=== PATIENT | female | born 1940 | race Two or more races ===

== ENCOUNTER 2020-01-25 06:47 | Outpatient (CLI) | payer OTHER | END 2020-01-25 06:57 | disposition home or self-care (01) | LOC: LAB 06:47 | PROVIDERS: ATTEND Internal Medicine Hematology & Oncology | DX: D50.8 Other iron deficiency anemias (principal); I10 Essential (primary) hypertension; D47.2 Monoclonal gammopathy; C90.00 Multiple myeloma not having achieved remission; E11.9 Type 2 diabetes mellitus without complications; E78.2 Mixed hyperlipidemia; H40.89 Other specified glaucoma ==

== ENCOUNTER 2020-01-25 08:03 | Outpatient (CLI) | payer OTHER | END 2020-01-25 08:07 | disposition home or self-care (01) | LOC: RAD 08:03 | PROVIDERS: ATTEND Internal Medicine Hematology & Oncology | DX: M85.88 Other specified disorders of bone density and structure, other site (principal); Z85.79 Personal history of other malignant neoplasms of lymphoid, hematopoietic and related tissues; I10 Essential (primary) hypertension; E11.9 Type 2 diabetes mellitus without complications; E78.2 Mixed hyperlipidemia; H40.89 Other specified glaucoma ==

== ENCOUNTER 2020-03-06 06:45 | Outpatient (CLI) | payer OTHER | END 2020-03-06 06:51 | disposition home or self-care (01) | LOC: LAB 06:45 | PROVIDERS: ATTEND Internal Medicine Hematology & Oncology | DX: D50.8 Other iron deficiency anemias (principal); R79.89 Other specified abnormal findings of blood chemistry; I10 Essential (primary) hypertension; R74.02 Elevation of levels of lactic acid dehydrogenase [LDH]; K76.89 Other specified diseases of liver; D63.1 Anemia in chronic kidney disease; C90.00 Multiple myeloma not having achieved remission; E11.9 Type 2 diabetes mellitus without complications; E78.2 Mixed hyperlipidemia; H40.89 Other specified glaucoma ==

== ENCOUNTER 2020-03-07 09:26 | Outpatient (CLI) | payer OTHER | END 2020-03-07 09:37 | disposition home or self-care (01) | LOC: NUCLEAR 09:26 | PROVIDERS: ATTEND Internal Medicine | DX: I11.9 Hypertensive heart disease without heart failure (principal); Z86.73 Personal history of transient ischemic attack (TIA), and cerebral infarction without residual deficits; I67.89 Other cerebrovascular disease ==

== ENCOUNTER 2020-03-14 07:34 | Outpatient (CLI) | payer OTHER | END 2020-03-14 07:41 | disposition home or self-care (01) | LOC: LAB 07:34 | PROVIDERS: ATTEND Internal Medicine Hematology & Oncology | DX: D50.8 Other iron deficiency anemias (principal); R79.89 Other specified abnormal findings of blood chemistry; I10 Essential (primary) hypertension; R74.02 Elevation of levels of lactic acid dehydrogenase [LDH]; K76.89 Other specified diseases of liver; D63.1 Anemia in chronic kidney disease; C90.00 Multiple myeloma not having achieved remission; E11.9 Type 2 diabetes mellitus without complications; E78.2 Mixed hyperlipidemia; H40.89 Other specified glaucoma ==

== ENCOUNTER 2020-04-14 07:46 | Outpatient (CLI) | payer OTHER | END 2020-04-14 07:54 | disposition home or self-care (01) | LOC: LAB 07:46 | PROVIDERS: ATTEND Internal Medicine Hematology & Oncology | DX: D50.8 Other iron deficiency anemias (principal); I10 Essential (primary) hypertension; R74.02 Elevation of levels of lactic acid dehydrogenase [LDH]; K76.89 Other specified diseases of liver; D47.2 Monoclonal gammopathy; C90.00 Multiple myeloma not having achieved remission; E11.9 Type 2 diabetes mellitus without complications; E78.2 Mixed hyperlipidemia; H40.89 Other specified glaucoma ==

== ENCOUNTER 2020-04-18 12:58 | Outpatient (CLI) | payer OTHER | END 2020-04-18 14:47 | disposition home or self-care (01) | LOC: NUCLEAR 12:58 | PROVIDERS: ATTEND Internal Medicine Hematology & Oncology | DX: M81.0 Age-related osteoporosis without current pathological fracture (principal); C90.00 Multiple myeloma not having achieved remission; I10 Essential (primary) hypertension; E11.9 Type 2 diabetes mellitus without complications; E78.2 Mixed hyperlipidemia; H40.89 Other specified glaucoma ==

== ENCOUNTER 2020-06-16 15:26 | Emergency (ER) | payer OTHER ==
[~2020-06-16] VITALS: Ht 157.5 cm; Wt 74.8 kg
[2020-06-16] MEDS ORDERED: ATORVASTATIN CA10 MG (15:37)
[2020-06-16] MEDS ORDERED: BUMETANIDE0.5 MG (15:37)
[2020-06-16] MEDS ORDERED: COZAAR25 MG (15:37)
[2020-06-16] MEDS ORDERED: JANUMET 50-1,01 EACH (15:41)
[2020-06-16] MEDS ORDERED: COREG CR10 MG (15:41)
[2020-06-17] MEDS ORDERED: ELIQUIS5 MG PO (11:22)
== END 2020-06-17 12:24 | disposition home or self-care (01) ==
LOC: ER 15:26 → CPU-OBS 15:44 → ER 15:44
DX: R00.2 Palpitations (principal); R07.89 Other chest pain; I51.7 Cardiomegaly; I27.29 Other secondary pulmonary hypertension

== ENCOUNTER 2020-06-24 07:41 | Outpatient (CLI) | payer OTHER ==
[~2020-06-24 07:41] MED LIST: ATORVASTATIN CA10 MG; BUMETANIDE0.5 MG; COREG CR10 MG; COZAAR25 MG; ELIQUIS5 MG PO; JANUMET 50-1,01 EACH
== END 2020-06-24 07:45 | disposition home or self-care (01) ==
LOC: LAB 07:41
PROVIDERS: ATTEND Internal Medicine Hematology & Oncology
DX: D50.8 Other iron deficiency anemias (principal); I10 Essential (primary) hypertension; R74.02 Elevation of levels of lactic acid dehydrogenase [LDH]; K76.89 Other specified diseases of liver; C90.00 Multiple myeloma not having achieved remission; E11.9 Type 2 diabetes mellitus without complications; E78.2 Mixed hyperlipidemia; H40.89 Other specified glaucoma

== ENCOUNTER 2020-08-19 09:27 | Emergency (ER) | payer OTHER ==
[~2020-08-19] VITALS: Ht 154.9 cm; Wt 78.9 kg
== END 2020-08-19 14:45 | disposition home or self-care (01) ==
LOC: ER 09:27
DX: D64.89 Other specified anemias (principal); N39.0 Urinary tract infection, site not specified; R42 Dizziness and giddiness; R53.81 Other malaise

== ENCOUNTER 2020-09-04 09:45 | Outpatient (CLI) | payer OTHER | END 2020-09-04 09:49 | disposition home or self-care (01) | LOC: LAB 09:45 | PROVIDERS: ATTEND Internal Medicine Hematology & Oncology | DX: D50.8 Other iron deficiency anemias (principal); I10 Essential (primary) hypertension; R74.02 Elevation of levels of lactic acid dehydrogenase [LDH]; K76.89 Other specified diseases of liver; D51.8 Other vitamin B12 deficiency anemias; D63.1 Anemia in chronic kidney disease; D47.2 Monoclonal gammopathy; C90.00 Multiple myeloma not having achieved remission; E11.9 Type 2 diabetes mellitus without complications; E78.2 Mixed hyperlipidemia; H40.9 Unspecified glaucoma ==

== ENCOUNTER → 2020-11-09 09:33 | Outpatient (CLI) | payer OTHER | END | disposition home or self-care (01) | LOC: LAB 09:33 | PROVIDERS: ATTEND Internal Medicine Hematology & Oncology | DX: D50.8 Other iron deficiency anemias (principal); I10 Essential (primary) hypertension; R74.02 Elevation of levels of lactic acid dehydrogenase [LDH]; K76.89 Other specified diseases of liver; C90.00 Multiple myeloma not having achieved remission; E11.9 Type 2 diabetes mellitus without complications; E78.2 Mixed hyperlipidemia; H40.89 Other specified glaucoma ==

== ENCOUNTER 2021-01-30 08:07 | Outpatient (CLI) | payer OTHER | END 2021-01-30 15:00 | disposition home or self-care (01) | LOC: LAB 08:07 | PROVIDERS: ATTEND Internal Medicine Hematology & Oncology | DX: D50.8 Other iron deficiency anemias (principal); I10 Essential (primary) hypertension; R74.02 Elevation of levels of lactic acid dehydrogenase [LDH]; K76.89 Other specified diseases of liver; D47.2 Monoclonal gammopathy; C90.00 Multiple myeloma not having achieved remission; E11.9 Type 2 diabetes mellitus without complications; E78.2 Mixed hyperlipidemia; H40.89 Other specified glaucoma ==

== ENCOUNTER 2021-04-18 08:26 | Outpatient (CLI) | payer OTHER | END 2021-04-18 15:00 | disposition home or self-care (01) | LOC: LAB 08:26 | PROVIDERS: ATTEND Internal Medicine Hematology & Oncology | DX: D50.8 Other iron deficiency anemias (principal); I10 Essential (primary) hypertension; R74.02 Elevation of levels of lactic acid dehydrogenase [LDH]; K76.89 Other specified diseases of liver; E55.9 Vitamin D deficiency, unspecified; E78.2 Mixed hyperlipidemia; E03.8 Other specified hypothyroidism; R97.0 Elevated carcinoembryonic antigen [CEA]; R97.8 Other abnormal tumor markers; C90.00 Multiple myeloma not having achieved remission; E11.9 Type 2 diabetes mellitus without complications; H40.89 Other specified glaucoma; D51.8 Other vitamin B12 deficiency anemias; D47.2 Monoclonal gammopathy ==

== ENCOUNTER 2021-06-21 10:33 | Outpatient (CLI) | payer OTHER | END 2021-06-21 10:41 | disposition home or self-care (01) | LOC: LAB 10:33 | PROVIDERS: ATTEND Internal Medicine Hematology & Oncology | DX: D50.8 Other iron deficiency anemias (principal); I10 Essential (primary) hypertension; R74.02 Elevation of levels of lactic acid dehydrogenase [LDH]; K76.89 Other specified diseases of liver; D47.2 Monoclonal gammopathy; C90.00 Multiple myeloma not having achieved remission; C56.9 Malignant neoplasm of unspecified ovary; R97.8 Other abnormal tumor markers; R97.1 Elevated cancer antigen 125 [CA 125]; E11.9 Type 2 diabetes mellitus without complications; E78.2 Mixed hyperlipidemia; H40.9 Unspecified glaucoma ==

== ENCOUNTER 2021-07-08 10:28 | Emergency (ER) | payer OTHER ==
[~2021-07-08] VITALS: Ht 154.9 cm; Wt 68.0 kg
[2021-07-08] MEDS ORDERED: REVLIMID10 MG (10:40)
== END 2021-07-08 12:08 | disposition home or self-care (01) ==
LOC: ER 10:28
DX: M79.662 Pain in left lower leg (principal); I89.0 Lymphedema, not elsewhere classified; I10 Essential (primary) hypertension; E11.9 Type 2 diabetes mellitus without complications; Z79.84 Long term (current) use of oral hypoglycemic drugs

== ENCOUNTER 2021-07-09 10:40 | Emergency (ER) | payer OTHER ==
[~2021-07-09] VITALS: Ht 154.9 cm; Wt 68.0 kg
[~2021-07-09 10:40] MED LIST changes: +REVLIMID10 MG
== END 2021-07-09 15:51 | disposition home or self-care (01) ==
LOC: ER 10:40
DX: R60.0 Localized edema (principal); M79.605 Pain in left leg; E11.9 Type 2 diabetes mellitus without complications; Z79.84 Long term (current) use of oral hypoglycemic drugs; I10 Essential (primary) hypertension

== ENCOUNTER 2021-08-10 08:56 | Outpatient (CLI) | payer OTHER | END 2021-08-10 09:00 | disposition home or self-care (01) | LOC: LAB 08:56 | PROVIDERS: ATTEND Internal Medicine Hematology & Oncology | DX: D50.8 Other iron deficiency anemias (principal); I10 Essential (primary) hypertension; R74.02 Elevation of levels of lactic acid dehydrogenase [LDH]; K76.89 Other specified diseases of liver; C90.00 Multiple myeloma not having achieved remission; E11.9 Type 2 diabetes mellitus without complications; E78.2 Mixed hyperlipidemia; H40.9 Unspecified glaucoma ==

== ENCOUNTER 2021-09-06 11:15 | Outpatient (CLI) | payer OTHER | END 2021-09-06 11:21 | disposition home or self-care (01) | LOC: MRI 11:15 | PROVIDERS: ATTEND Psychiatry & Neurology Clinical Neurophysiology | DX: G30.1 Alzheimer's disease with late onset (principal) | CPT/HCPCS: 70551 ==

== ENCOUNTER → 2021-09-21 07:42 | Outpatient (CLI) | payer OTHER | END | disposition home or self-care (01) | LOC: LAB 07:42 | PROVIDERS: ATTEND Internal Medicine Hematology & Oncology | DX: D50.8 Other iron deficiency anemias (principal); I10 Essential (primary) hypertension; R74.02 Elevation of levels of lactic acid dehydrogenase [LDH]; K76.89 Other specified diseases of liver; D47.2 Monoclonal gammopathy; C90.00 Multiple myeloma not having achieved remission; E11.9 Type 2 diabetes mellitus without complications; E78.2 Mixed hyperlipidemia; H40.9 Unspecified glaucoma ==

== ENCOUNTER 2021-11-09 09:43 | Outpatient (CLI) | payer OTHER | END 2021-11-09 09:48 | disposition home or self-care (01) | LOC: LAB 09:43 | PROVIDERS: ATTEND Internal Medicine Gastroenterology | DX: D68.8 Other specified coagulation defects (principal) ==

== ENCOUNTER 2021-12-13 07:52 | Outpatient (CLI) | payer OTHER | END 2021-12-13 07:53 | disposition home or self-care (01) | LOC: LAB 07:52 | PROVIDERS: ATTEND Internal Medicine Hematology & Oncology | DX: D50.8 Other iron deficiency anemias (principal); I10 Essential (primary) hypertension; R74.02 Elevation of levels of lactic acid dehydrogenase [LDH]; K76.89 Other specified diseases of liver; C90.00 Multiple myeloma not having achieved remission; E11.9 Type 2 diabetes mellitus without complications; E78.2 Mixed hyperlipidemia; H40.9 Unspecified glaucoma ==

== ENCOUNTER 2022-03-15 09:42 | Outpatient (CLI) | payer OTHER | END 2022-03-15 09:46 | disposition home or self-care (01) | LOC: LAB 09:42 | PROVIDERS: ATTEND Internal Medicine Hematology & Oncology | DX: D50.8 Other iron deficiency anemias (principal); I10 Essential (primary) hypertension; R74.02 Elevation of levels of lactic acid dehydrogenase [LDH]; K76.89 Other specified diseases of liver; D47.2 Monoclonal gammopathy; C90.00 Multiple myeloma not having achieved remission; R97.0 Elevated carcinoembryonic antigen [CEA]; R97.8 Other abnormal tumor markers ==

== ENCOUNTER 2022-04-09 14:29 | Outpatient (CLI) | payer OTHER | END 2022-04-09 15:00 | disposition home or self-care (01) | LOC: TOM 14:29 | PROVIDERS: ATTEND Psychiatry & Neurology Clinical Neurophysiology | DX: S09.90XA Unspecified injury of head, initial encounter (principal) ==

== ENCOUNTER → 2022-05-03 08:16 | Outpatient (CLI) | payer OTHER | END | disposition home or self-care (01) | LOC: LAB 08:16 | PROVIDERS: ATTEND Internal Medicine Hematology & Oncology | DX: D50.8 Other iron deficiency anemias (principal); I10 Essential (primary) hypertension; R74.02 Elevation of levels of lactic acid dehydrogenase [LDH]; K76.89 Other specified diseases of liver; C90.00 Multiple myeloma not having achieved remission; D47.2 Monoclonal gammopathy; H40.9 Unspecified glaucoma; E11.9 Type 2 diabetes mellitus without complications; E78.2 Mixed hyperlipidemia ==

== ENCOUNTER 2022-07-18 07:04 | Outpatient (CLI) | payer OTHER | END 2022-07-18 07:17 | disposition home or self-care (01) | LOC: LAB 07:04 | PROVIDERS: ATTEND Internal Medicine Hematology & Oncology | DX: D50.8 Other iron deficiency anemias (principal); I10 Essential (primary) hypertension; R74.02 Elevation of levels of lactic acid dehydrogenase [LDH]; K76.89 Other specified diseases of liver; D51.8 Other vitamin B12 deficiency anemias; D63.1 Anemia in chronic kidney disease; D47.2 Monoclonal gammopathy; C90.00 Multiple myeloma not having achieved remission; E11.9 Type 2 diabetes mellitus without complications; E78.2 Mixed hyperlipidemia; H40.9 Unspecified glaucoma ==

== ENCOUNTER 2022-09-13 07:39 | Outpatient (CLI) | payer OTHER | END 2022-09-13 07:42 | disposition home or self-care (01) | LOC: LAB 07:39 | PROVIDERS: ATTEND Internal Medicine Hematology & Oncology | DX: D50.8 Other iron deficiency anemias (principal); I10 Essential (primary) hypertension; R74.02 Elevation of levels of lactic acid dehydrogenase [LDH]; K76.89 Other specified diseases of liver; C90.00 Multiple myeloma not having achieved remission; D51.3 Other dietary vitamin B12 deficiency anemia; E11.9 Type 2 diabetes mellitus without complications; E78.2 Mixed hyperlipidemia; H40.9 Unspecified glaucoma ==

== ENCOUNTER 2022-11-30 07:45 | Outpatient (CLI) | payer OTHER | END 2022-11-30 07:46 | disposition home or self-care (01) | LOC: LAB 07:45 | PROVIDERS: ATTEND Internal Medicine Hematology & Oncology | DX: D50.8 Other iron deficiency anemias (principal); R74.02 Elevation of levels of lactic acid dehydrogenase [LDH]; K76.89 Other specified diseases of liver; D47.2 Monoclonal gammopathy; C90.00 Multiple myeloma not having achieved remission; D51.3 Other dietary vitamin B12 deficiency anemia; E11.9 Type 2 diabetes mellitus without complications; E78.2 Mixed hyperlipidemia; H40.9 Unspecified glaucoma; E83.42 Hypomagnesemia; I11.9 Hypertensive heart disease without heart failure ==

== ENCOUNTER → 2023-03-11 07:15 | Outpatient (CLI) | payer OTHER ==
[2023-03-11 08:17] LABS: HEMATOCRIT 28.3 % (36.0-45.00); HEMOGLOBIN 9.5 g/dL (12.0-15.00); MEAN CELL VOLUME 97.3 fL (80.00-100.00); MEAN CORPUSCULAR HEMOGLOBIN 32.5 pg (27.00-32.0); MEAN CORPUSCULAR HGB CONC 33.4 g/dl (32.0-36.0); PLATELET COUNT 227 K/uL (150-450); RED BLOOD COUNT 2.91 M/uL (4.00-6.00)
[2023-03-11 08:42] LABS: ALBUMIN 2.8 gm/dL (3.4-5.0); BILIRUBIN TOTAL 0.81 mg/dL (0.3-1.2); CALCIUM 8.9 mg/dL (8.5-10.1); GFR 53.35; GLOBULINA 5.7 G/DL (2.4-3.5); POTASSIUM 4.05 mEq/L (3.5-5.1); TOTAL PROTEIN 8.5 gm/dL (6.4-8.2)
[2023-03-12 16:11] LABS: kappa lambda r 184.15 (0.26-1.65); kappa light 1841.5 mg/L (3.3-19.4)
== END | disposition home or self-care (01) ==
LOC: LAB 07:15
PROVIDERS: ATTEND Internal Medicine Hematology & Oncology
DX: D50.8 Other iron deficiency anemias (principal); I10 Essential (primary) hypertension; R74.02 Elevation of levels of lactic acid dehydrogenase [LDH]; K76.89 Other specified diseases of liver; D47.2 Monoclonal gammopathy; C90.00 Multiple myeloma not having achieved remission; D51.3 Other dietary vitamin B12 deficiency anemia; E11.9 Type 2 diabetes mellitus without complications; E78.2 Mixed hyperlipidemia; H40.9 Unspecified glaucoma

== ENCOUNTER 2023-05-26 10:09 | Outpatient (CLI) | payer OTHER ==
[2023-05-26 11:24] LABS: HEMATOCRIT 26.6 % (36.0-45.00); MEAN CORPUSCULAR HGB CONC 33.4 g/dl (32.0-36.0); PLATELET COUNT 261 K/uL (150-450); RED CELL DISTRIBUTION WIDTH 14.5 % (11.5-14.5)
[2023-05-26 12:01] LABS: HEMOGLOBIN 8.9 g/dL (12.0-15.00); MEAN CORPUSCULAR HEMOGLOBIN 31.7 pg (27.00-32.0)
[2023-05-26 12:03] LABS: ALBUMIN 2.9 gm/dL (3.4-5.0); BILIRUBIN TOTAL 1.16 mg/dL (0.3-1.2); CALCIUM 9.9 mg/dL (8.5-10.1); CREATININE SERUM 1.76 mg/dL (0.55-1.02); GFR 27.71; POTASSIUM 4.04 mEq/L (3.5-5.1); TOTAL PROTEIN 9.9 gm/dL (6.4-8.2)
[2023-05-26 13:11] LABS: FOLIC ACID > 20.00 ng/ml (4.78-20)
[2023-05-28 16:07] LABS: kappa light 4219.2 mg/L (3.3-19.4)
== END 2023-05-26 10:10 | disposition home or self-care (01) ==
LOC: LAB 10:09
PROVIDERS: ATTEND Internal Medicine Hematology & Oncology
DX: C90.00 Multiple myeloma not having achieved remission (principal); D50.8 Other iron deficiency anemias; D51.3 Other dietary vitamin B12 deficiency anemia; I10 Essential (primary) hypertension; E11.9 Type 2 diabetes mellitus without complications; E78.2 Mixed hyperlipidemia; H40.9 Unspecified glaucoma